=== PATIENT | male | born 1990 | race Caucasian/White ===

== ENCOUNTER 2025-06-02 16:33 | Emergency (ER) | payer SELFPAY ==
[~2025-06-02] VITALS: Ht 177.8 cm; Wt 81.8 kg
[2025-06-02 16:35] VITALS: BP 135/88; PULSE 102; RESP 18; TEMP 97.9; O2SAT 99
[2025-06-02] MEDS: RABIES VACCINE, HUMAN DIPLOID/PF 2.5 UNITS/ML VIAL IM. ONE (18:11)
[2025-06-02] MEDS: RABIES IMMUNE GLOBULIN/PF 150 UNITS/ML 10 ML VIAL IM. ONE (18:13)
== END 2025-06-02 18:35 | disposition home or self-care (01) ==
LOC: EMS 16:33
DX: S61.451A Open bite of right hand, initial encounter (principal); Z20.3 Contact with and (suspected) exposure to rabies; Z23 Encounter for immunization; W55.01XA Bitten by cat, initial encounter; Y93.89 Activity, other specified; Y92.89 Other specified places as the place of occurrence of the external cause; Y99.8 Other external cause status
CPT/HCPCS: 90375; 90471; 90675; 96372; 99284